=== PATIENT | female | born 1965 | race Caucasian/White ===

== ENCOUNTER 2017-05-18 01:24 | Emergency (ER) | payer MEDICAID ==
[~2017-05-18] VITALS: Ht 162.6 cm; Wt 99.8 kg
[2017-05-18] MEDS ORDERED: BENZONATATE 100 MG CAPSULE PO ONE (02:00)
[2017-05-18] MEDS ORDERED: BENZONATATE 100 MG CAPSULE ONE (02:07)
--- NOTE | 2017-05-18 02:09 | NUR ---
Patient discharged to home in stable conditon. Written and verbal after care instructions given. Patient verbalizes understanding of instructions.
== END 2017-05-18 02:11 | disposition home or self-care (01) ==
LOC: ER 01:26
DX: J20.9 Acute bronchitis, unspecified (principal); Z88.0 Allergy status to penicillin
CPT/HCPCS: 99283; A4663

== ENCOUNTER 2018-07-27 00:16 | Emergency (ER) | payer MEDICAID, OTHER ==
[~2018-07-27] VITALS: Ht 162.6 cm; Wt 95.3 kg
--- NOTE | 2018-07-27 00:30 | NUR ---
Dr. Garcia at bedside for MSE.
[2018-07-27] MEDS ORDERED: HYDROCODONE/APAP 10-325 MG TABLET ONE (00:36)
[2018-07-27] MEDS ORDERED: predniSONE 20 MG TABLET ONE (00:37)
[2018-07-27] MEDS ORDERED: ONDANSETRON ODT 4 MG TAB.RAPDIS ONE (00:37)
[2018-07-27] MEDS ORDERED: ACETAMINOPHEN ES 500 MG TABLET ONE (00:43)
[2018-07-27] MEDS ORDERED: ONDANSETRON ODT 4 MG TAB.RAPDIS SL ONE (00:45)
[2018-07-27] MEDS ORDERED: ACETAMINOPHEN ES 500 MG TABLET PO ONE (00:45)
[2018-07-27] MEDS ORDERED: predniSONE 20 MG TABLET PO ONE (00:45)
[2018-07-27] MEDS ORDERED: HYDROCODONE/APAP 10-325 MG TABLET PO ONE (00:45)
--- NOTE | 2018-07-27 01:17 | NUR ---
Patient discharged to home in stable conditon. Written and verbal after care instructions given. Patient verbalizes understanding of instructions. Patient ambulated out of ER with steady gait, no acute signs of distress, VSS, all belongings taken.
[2018-07-27 01:19] VITALS: BP 108/68
== END 2018-07-27 01:19 | disposition home or self-care (01) ==
LOC: ER 00:17
DX: R50.9 Fever, unspecified (principal); R05 Cough; Z88.0 Allergy status to penicillin
CPT/HCPCS: 87400; 99284; J7512; A4663; A9150; Q0162

== ENCOUNTER 2024-06-16 12:45 | Emergency (ER) | payer MEDICAID ==
[~2024-06-16] VITALS: Ht 162.6 cm; Wt 88.9 kg
[2024-06-16] MEDS ORDERED: LORAZEPAM 0.5 MG TABLET ONE (13:46)
[2024-06-16] MEDS: LORAZEPAM 0.5 MG TABLET PO ONE (13:51)
[2024-06-16 14:00] LABS: BASOPHILS # (AUTO) 0.1 K/UL (0.0-0.2); BASOPHILS % (AUTO) 1.2 % (0.0-2.0); EOSINOPHILS # (AUTO) 0.1 K/uL (0.0-0.7); EOSINOPHILS % (AUTO) 1.8 % (0.0-7.0); HEMATOCRIT 40.9 % (31.2-41.9); HEMOGLOBIN 13.6 g/dL (10.9-14.3); LYMPHOCYTES # (AUTO) 1.6 K/uL (0.8-4.8); LYMPHOCYTES % (AUTO) 27.6 % (20.5-51.5); MEAN CORPUSCULAR HEMOGLOBIN 31.9 uug (24.7-32.8); MEAN CORPUSCULAR HGB CONC 33 g/dL (32.3-35.6); MEAN CORPUSCULAR VOLUME 95.8 fL (75.5-95.3); MONOCYTES # (AUTO) 0.6 K/uL (0.1-1.30); MONOCYTES % (AUTO) 9.7 % (0.0-11.0); NEUTROPHILS # (AUTO) 3.4 K/uL (1.8-8.9); NEUTROPHILS % (AUTO) 59.7 % (38.5-71.5); PLATELET COUNT (AUTO) 224 K/uL (179-408); RED BLOOD CELL COUNT(AUTO) 4.27 MIL/uL (3.63-4.92); RED CELL DISTRIBUTION WIDTH 14.1 % (12.3-17.7); WHITE BLOOD COUNT (AUTO) 5.7 K/uL (3.8-11.8)
[2024-06-16 14:01] LABS: DIFFERENTIAL COMMENT 1
[2024-06-16 14:08] LABS: CREATININE 0.8 mg/dL (0.6-1.3); POTASSIUM 3.5 mmol/L (3.5-5.1)
[2024-06-16] MEDS ORDERED: LORA-259 PO (14:33)
[2024-06-16] MEDS ORDERED: GUAI5SYR4 PO (14:44)
[2024-06-16 14:57] VITALS: BP 138/82; O2SAT 98
== END 2024-06-16 14:58 | disposition home or self-care (01) ==
LOC: ER 12:45
DX: Z88.0 Allergy status to penicillin (principal); Z79.899 Other long term (current) drug therapy; F41.9 Anxiety disorder, unspecified; J22 Unspecified acute lower respiratory infection; B97.89 Other viral agents as the cause of diseases classified elsewhere
CPT/HCPCS: 36415; 85025; A4606; A4663